=== PATIENT | female | born 1965 | race Two or more races ===

== ENCOUNTER 2017-06-10 12:46 | Emergency (ER) | payer BC, MEDICAID ==
[~2017-06-10] VITALS: Ht 165.1 cm; Wt 76.7 kg
[2017-06-10 15:58] VITALS: BP 150/71
[2017-06-10] MEDS ORDERED: ACETAMINOPHEN 500 MG TAB PO ONE (16:45)
== END 2017-06-10 17:08 | disposition home or self-care (01) ==
LOC: ER 12:46
DX: S46.912A Strain of unspecified muscle, fascia and tendon at shoulder and upper arm level, left arm, initial encounter (principal); S00.83XA Contusion of other part of head, initial encounter; V43.52XA Car driver injured in collision with other type car in traffic accident, initial encounter; Y93.89 Activity, other specified; Y92.410 Unspecified street and highway as the place of occurrence of the external cause; Y99.8 Other external cause status
CPT/HCPCS: 70450; 72040; 73030